=== PATIENT | male | born 1935 | race Caucasian/White ===

== ENCOUNTER 2022-11-17 05:45 | Inpatient (IN) | payer MEDICARE, OTHER ==
[2022-11-13 10:23] LABS: Absolute Lymphocytes (CBC) 1.3 K/uL (0.7-4.9); Hematocrit 39.6 % (39.6-49.0); Lymphocytes % 14.8 % (15.3-44.8); MCV 96.9 fL (80-100); MPV 7.9 fL (7.6-11.3); RBC Red Blood Cell Count 4.08 M/uL (4.33-5.43)
[2022-11-13 10:30] LABS: Protime INR 0.97
[2022-11-13 10:35] LABS: Specific Gravity 1.017 (1.005-1.030); Urine Bilirubin NEGATIVE (Negative); Urine Blood Negative (Negative); Urine Clarity Clear (Clear); Urine Color Light-Yellow (Yellow); Urine Glucose NEGATIVE (Negative); Urine Protein NEGATIVE (Negative); Urine Urobilinogen Normal (Normal); Urine pH 5.5 (5.0-7.0)
--- NOTE | 2022-11-13 10:39 | RAD REPORT ---
EXAM DESCRIPTION: RAD - Chest Pa And Lat (2 Views) - 11/13/2022 10:21 am CLINICAL HISTORY: pre op for surgery COMPARISON: No comparisons FINDINGS: Lines: None. Lungs: No evidence of edema or pneumonia. Small nodular opacity in the right mid lung measuring 7 mil limeters. Pleural: No significant pleural effusions or pneumothorax. Cardiac: The heart size is within normal limits. Mediastinum: Within normal limits. Bones: No acute fractures. Other: None IMPRESSION: No acute cardiopulmonary disease. Small nodular opacity in the right mid lung. A [facility] follow-up chest radiograph could be obtained to ensure stability and/or resolution.
[2022-11-13 10:40] LABS: Albumin 3.3 g/dL (3.4-5.0); Bilirubin Total 0.4 mg/dL (0.2-1.0); Potassium 4.2 mmol/L (3.5-5.1); Protein, Total 6.8 g/dL (6.4-8.2)
--- NOTE | 2022-11-14 17:40 | EKG ---
Test Date: 2022-11-13 Test Time: 09:51:32 Degreaser: UZMA MEASUREMENT RESULTS: Intervals: Rate: 57 NE: QRSD: 168 QT: 480 QTc: 467 [place]: P: NE: QRS: -78 T: -4 INTERPRETIVE STATEMENTS: Wide QRS rhythm Left axis deviation Right bundle branch block Abnormal ECG No previous ECG available for comparison Electronically Signed On 11-14-22 17:39:20 HL7 DEVELOPER by Paulino Aguilar
[2022-11-17] MEDS ORDERED: GABAPENTIN 100 MG CAP ONE (05:58)
[2022-11-17] MEDS ORDERED: CELECOXIB 100 MG CAPSULE ONE (05:58)
[2022-11-17] MEDS ORDERED: Oxycodone HCl/Acetaminophen 1 TAB TAB ONE (05:58)
[2022-11-17] MEDS ORDERED: ACETAMINOPHEN 500 MG TAB ONE (05:59)
[2022-11-17] MEDS ORDERED: Ringers Lactate 1,000 ML IV ONE ×2 (05:59→08:48)
[2022-11-17] MEDS ORDERED: FENTANYL CITR 100 MCG/2 ML ONE (06:22)
[2022-11-17] MEDS ORDERED: EPINEPHRINE/PF 1 MG/ML AMP ONE (06:22)
[2022-11-17] MEDS ORDERED: dexAMETHasone 10 MG/ML VIAL ONE (06:22)
[2022-11-17] MEDS ORDERED: HYDROMORPHONE HCL 1 MG/ML INJ ONE (06:23)
[2022-11-17] MEDS ORDERED: propofoL 200 MG/20 ML VIAL IV ONE ×6 (06:23→09:13)
[2022-11-17] MEDS ORDERED: BUPIVACAINE 0.25% PF 30 ML VIAL ONE (06:23)
[2022-11-17] MEDS ORDERED: KETOROLAC 30 MG/ML INJ ONE (07:04)
[2022-11-17] MEDS ORDERED: KETAMINE HCL 500 MG/5 ML VIAL ONE (07:04)
[2022-11-17] MEDS ORDERED: LIDOCAINE 2% MPF 5 ML VIAL ONE (07:04)
[2022-11-17] MEDS ORDERED: ONDANSETRON 4 MG/2 ML VIAL ONE (07:04)
[2022-11-17] MEDS: CEFAZOLIN SODIUM 2 GM/VIAL ONE ×3 (07:05→07:19)
[2022-11-17] MEDS: TRANEXAMIC ACID 1,000 MG/10 ML VIAL IV ONE ×2 (07:05→07:11)
[2022-11-17] MEDS ORDERED: NS 0.9% VIAL 20 ML ONE (07:25)
[2022-11-17] MEDS ORDERED: ONDANSETRON 4 MG/2 ML VIAL IV PRN (09:56)
[2022-11-17] MEDS ORDERED: DOCUSATE NA 100 MG CAP PO PRN (09:56)
--- NOTE | 2022-11-17 09:56 | P.BOP ---
Preoperative diagnosis: right knee DJD Postoperative diagnosis: same Primary procedure: right TKA Estimated blood loss: 50ccs Anesthesia: General Complications: None Transferred to: Recovery Room Condition: Good
[2022-11-17 10:33] LABS: SARS-CoV-2 Antigen Rapid Res Negative (Negative)
--- OUTSIDE RECORDS SUMMARY | 2022-11-17 10:54 | XMS REPORT | Continuity of Care Document ---
:1935 Author Organization [facility] t Address [address] [place] [address] [address] [place] [address] Care Team Providers Name Role Phone Randell Arshad MD Primary Care Physician [id number] Attending Clinician Unavailable LAYA LOWRY Attending Clinician Unavailable [id number] Admitting Clinician Unavailable Payers Payer Name Policy Type Policy Number Effective Date Expiration Date S ource [facility] [id number] Problems This patient has no known problems. Allergies, Adverse Reactions, Alerts This patient has no known allergies or adverse reactions. Social History Social Habit Start Date Stop Date Quantity Comments Source Sex Assigned At [address] [facility] 00:00:00 00:00:00 Smoking Status Start Date Stop Date Source Tobacco smoking consumption unknown [facility] Medications This patient has no known medications. Procedures This patient has no known procedures. Plan of Care Planned Activity Planned Date Details Comments Source Future Scheduled 2022-10-21 INFLUENZA VACCINE Method [facility] Test 07:14:13 [code = INFLUENZA VACCINE] Future Scheduled 2022-10-21 COVID-19 VACCINE (#1) [facility] Test 07:14:13 [code = COVID-19 VACCINE (#1)] Future Scheduled 2022-10-21 SHINGLES VACCINES (1 Met [facility] Test 07:14:13 of 2) [code = SHINGLES VACCINES (1 of 2)] Future Scheduled 2022-10-21 65+ [facility] VACCINE (1 - PCV) [code = 65+ PNEUMOCOCCAL VACCINE (1 - PCV)] Encounters Start End Encounter Admission Attending Care Care Encounter Source Date/Time Date/Time Type Type Clinicians Facility Department ID 2022-11-13 Outpatient 3 [id number] [facility] ORJ [id number] [facility] 08:50:42 [facility] 2022-11-11 Outpatient 3 [id number] [facility] REF [id number] [facility] 12:08:19 [id number] [place] [facility] 2019-11-28 2019-11-28 Outpatient LAYA LOWRY [facility] [id number] [facility] 00:00:00 00:00:[address] 2019-11-28 2019-11-28 Outpatient LAYA LOWRY [facility] [id number] [facility] 00:00:00 00:00:[address] Results This patient has no known results.
[2022-11-17] MEDS ORDERED: ACETAMINOPHEN 325 MG TABLET PO PRN (12:28)
[2022-11-17] MEDS ORDERED: HYDRALAZINE HCL 20 MG/ML VIAL IV PRN (12:28)
--- NOTE | 2022-11-17 12:48 | P.CNS ---
Reason for Consult: Medical management. Requesting Physician: Miky Renae Chief Complaint: Right knee pain. History of Present Illness: Patient is an 87-year-old male with a past medical history significant for hypothyroidism, hypertension, atrial fibrillation, prostate cancer, osteoarthritis who presents for scheduled procedure--right knee replacement-- with his orthopedic surgeon. Patient reported that he has been having pain in the right knee for the past couple of years. Patient has attempted conservative management, pain medications, steroid injections with no resolution of pain. Patient rated pain before procedure as 10/10 in severity and described pain as aching in quality. Patient agreed with his surgeon to perform a right knee replacement. Patient tolerated procedure. Patient currently rates right knee pain as 3/10 in severity. Patient denies any other signs and symptoms. Symptoms are aggravated or relieved by nothing. Patient currently resting bed with right knee on the a CPM machine. Allergies No Known Allergies Allergy (Verified 11/13/22 09:14) Home Medications: Aspirin [Aspirin EC] 81 mg PO DAILY 09/13/15 Digoxin [Lanoxin] 0.25 mg PO DAILY 09/13/15 Flecainide [Tambocor] 200 mg PO BID 09/13/15 Levothyroxine [Synthroid] 88 mcg PO [id number] 09/13/15 Losartan/Hydrochlorothiazide [Losartan-Hctz 100-12.5 mg Tab] 1 each PO DAILY 09/13/15 Metoprolol Tartrate [Lopressor] 50 mg PO BID 09/13/15 Multivit-Min/FA/Lycopen/Lutein [Centrum Silver Tablet] 1 each PO DAILY 09/13/15 Naproxen Sodium [Aleve] 220 mg PO PRN PRN 11/13/22 - Past Medical/Surgical History Diabetic: No -: HTN -: OA -: A-Fib -: Prostate CA -: Thyroid Disease -: irregular heart beat -: high blood pressure -: prostrate cancer radiation 2009 -: hernia 20 yrs old -: kidney stone 40 yrs ago -: Spinal Sx - Family History Mother Medical History: Heart disease Family History: Reviewed- Non-Contributory - Social History Smoking Status: Unknown if ever smoked Alcohol use: No CD- Drugs: No Caffeine use: Yes Place of Residence: Home Review of Systems General: Unremarkable Eyes: Unremarkable ENT: Unremarkable Respiratory: Unremarkable Cardiovascular: Unremarkable Gastrointestinal: Unremarkable Genitourinary: Unremarkable Musculoskeletal: Other (right knee pain) Integumentary: Other (right knee incision ) Neurological: Unremarkable Lymphatics: Unremarkable Physical Examination Temp Pulse Resp BP Pulse Ox 97.2 F 62 16 171/81 H 95 11/17/22 12:00 11/17/22 12:00 11/17/22 12:00 11/17/22 12:00 11/17/22 12:00 General: Alert, In no apparent distress, Oriented x3, Cooperative HEENT: Atraumatic, Normocephalic, PERRLA, Mucous membr. moist/pink Neck: Supple, 2+ carotid pulse no bruit, JVD not distended Respiratory: Clear to auscultation bilaterally, Normal air movement Cardiovascular: No edema, No murmurs, Irregular heart rate/rhythm Capillary refill: <2 Seconds Gastrointestinal: Normal bowel sounds, Soft and benign Musculoskeletal: No clubbing, No contractures Integumentary: No rashes, No breakdown, No significant lesion Neurological: Normal speech, Normal tone, Normal affect Lymphatics: No axilla or inguinal lymphadenopathy Conclusions/Impression: --Right knee osteoarthritis. Status post right knee arthroplasty. Patient on a CPM machine at time of assessment. Physical therapy eval and treat. Orthopedic surgeon will. Continue supportive care. --Acute pain\osteoarthritis. We will manage pain with current pain medication regimen. --Atrial fibrillation. Continue home medications. Telemetry to monitor for any malignant arrhythmia. --Hypothyroidism. Continue Synthroid. --Hypertension. Poorly controlled. Continue home medications and hydralazine as needed. --History of prostate cancer. Status unknown. Continue supportive care. -- Anemia of chronic disease. H&H stable. We will continue to monitor hemoglobin and transfuse if less than 7.0. --CKD 2. Stable. We will continue to monitor renal functions. --DVT prophylaxis with SCDs. Continue chemical prophylaxis in a.m. Physician Review: Patient Assessed, Agree with Above Assessment and Plan Critical Care: No
[2022-11-17 16:23] LABS: Specific Gravity 1.021 (1.005-1.030); Urine Bilirubin NEGATIVE (Negative); Urine Blood Negative (Negative); Urine Clarity Clear (Clear); Urine Color Light-Yellow (Yellow); Urine Glucose NEGATIVE (Negative); Urine Protein NEGATIVE (Negative); Urine Urobilinogen Normal (Normal)
[2022-11-17] MEDS: CEFAZOLIN 1 GM in NA CHLORIDE 0.9% 50 ML IVPB SCH (16:51)
--- NOTE | 2022-11-17 18:34 | OP ---
Date of Procedure: 11/17/2022 Surgeon: Miky Renae MD Preoperative Diagnosis: Severe right knee arthritis. Postoperative Diagnosis: Severe right knee arthritis. Procedure: Right total knee arthroplasty using the [employer] Vanguard system. Estimated Blood Loss: 50 cc. Complications: There were no complications. Indications: Mr. Akers is an 87-year-old male who unfortunately is severely bothered by his right knee. This persists despite injections and further conservative care. He is 87 years old and we di d discuss quite a bit that he is quite older and perhaps further conservative care would definitely b e preferable; however, it is unfortunately not helpful and the patient is having severe difficulty. Therefore the risks, benefits, and alternatives to procedure are discussed and he agrees to proceed. It should be noted that his knee does not come to full extension, lacking a few degrees from full ex tension and also has a fairly significant valgus alignment. Description Of Procedure: The patient has a block placed, then was taken to the operating room, and placed in supine position. General anesthesia is obtained by Anesthesia staff. Following this, well -padded tourniquet was placed on superior right thigh. Right lower extremity was then prepped and dr aped in usual sterile fashion for procedure. It does lack a few degrees of full extension and has qu ite a bit of valgus. After this, the right lower extremity was then prepped and draped in usual ster ile fashion and the knee was then elevated, exsanguinated, and bent and the tourniquet was raised. A fter this, a standard anterior approach was taken down carefully through skin and soft tissues. Meti culous hemostasis being maintained using Bovie electrocautery. This leads down to the patella. The superomedial pole of patella was then marked and a standard medial parapatellar arthrotomy was then p erformed with liberation of approximately 60 cc of rather normal-appearing synovial fluid. The knee was examined. He does have wear throughout all 3 compartments. However, there was less wear on the lateral side than I had anticipated based on preoperative planning and this appeared to be more of a significantly dished out lateral side rather than an eroded lateral side demonstrating that the amoun t of bone loss laterally was not as much as probably anticipated, however, definitely did involve art hritic changes there. After this, an intramedullary alignment guide was placed and a distal cut was made. This was cutting not much of the lateral condyle, but more of the medial condyle as this was l ined up with the femoral shaft. After this, it was then measured to a size 65. The remainder of the femoral cuts were then made. Following this, attention was then turned to the tibia. It should be noted that the lateral has a very large dish and the tibial cut is made quite a bit more shallow on t he lateral side. It was then sized and trialed. The knee is in a little bit of valgus, but it appea rs to be very well balanced perhaps slightly looser medially, but fairly tight laterally. At this po int, decision was made to continue with this alignment as cutting more on the lateral side would prob ably necessitate a series of releases as the soft tissue was already quite tight on that side. Even though he is in some degree of valgus, it was felt that it was probably better to proceed on rather t burns establish releases on the lateral side as cutting more of the lateral side would lead to increase d valgus, but it was definitely considered. Following this, the patella was then calipered and cut a nd a trial patellar button was placed. It was then brought through a full range of motion and the pa tella appears to glide with 1 finger pressure. After this, the box was then cut as well as the tibia being punched, the bone plug was placed and all the components with the exception of the tibial poly ethylene were then cemented into place. Unsupported cement was removed. After the cement had harden ed, the knee was brought through range of motion and the patella still holds over with 1 finger press ure. It is a little bit loose medially, but again did not want to perform lateral releases and place a thicker polyethylene as I believe this would have led to more of a valgus alignment that is alread y present. Care was taken to not internally rotate either the femur or the tibia during the procedur e as well. Decision was made to move forward with this as the final polyethylene and it was then dereje corby with a locking bar. The wound was copiously irrigated. Any unsupported cement was noted to be r emoved. The knee was then brought through range of motion. Patella continues to glide well. The ex tensor mechanism was then repaired in a watertight fashion. This was followed by closure of the skin using Vicryl sutures, followed by andres. The patient was then placed in a very well-padded sterile dressing and taken to recovery ro om. LAM/ZEUS Voice ID: [id number] Report ID: [id number]
[2022-11-17] MEDS: METOPROLOL TAR 50 MG TAB PO SCH ×2 (20:23→20:30)
[2022-11-17] MEDS: FLECAINIDE 100 MG TAB PO SCH (20:24)
[2022-11-17] MEDS: HYDROCODONE/APAP 7.5/325 MG TAB PO PRN (20:25)
[2022-11-18] MEDS: CEFAZOLIN 1 GM in NA CHLORIDE 0.9% 50 ML IVPB SCH ×2 (01:21→09:30)
[2022-11-18 05:06] LABS: Absolute Lymphocytes (CBC) 1.1 K/uL (0.7-4.9); Hematocrit 34.8 % (39.6-49.0); Lymphocytes % 8.2 % (15.3-44.8); MCV 96.5 fL (80-100); MPV 8.5 fL (7.6-11.3)
[2022-11-18 05:17] LABS: Potassium 3.9 mmol/L (3.5-5.1)
[2022-11-18] MEDS ORDERED: POTASSIUM 25 MEQ EFFERV TAB PO ONE (05:27)
[2022-11-18] MEDS: ENOXAPARIN 30 MG/0.3 ML SQ SCH ×2 (05:35→17:11)
[2022-11-18] MEDS: LEVOTHYROXINE SOD 0.088 MG TAB PO SCH (05:35)
[2022-11-18] MEDS: FLECAINIDE 100 MG TAB PO SCH ×2 (09:30→20:00)
[2022-11-18] MEDS: ASPIRIN EC 81 MG TAB PO SCH (09:30)
[2022-11-18] MEDS: LOSARTAN POTASSIUM 50 MG TABLET PO SCH (09:30)
[2022-11-18] MEDS: MULTIVIT W/ MINERAL TAB PO SCH (09:30)
[2022-11-18] MEDS: DIGOXIN 0.25 MG TABLET PO SCH (09:30)
[2022-11-18] MEDS: METOPROLOL TAR 50 MG TAB PO SCH ×3 (09:31→20:07)
[2022-11-18] MEDS: HYDROCODONE/APAP 7.5/325 MG TAB PO PRN ×3 (09:31→20:00)
[2022-11-18] MEDS: hydroCHLOROthiazide 12.5 MG CAP PO SCH (09:31)
--- NOTE | 2022-11-18 13:56 | P.PN ---
Subjective Date of Service: 11/18/22 Chief Complaint: Right knee pain. Patient has no new complaint. He was able to ambulate about 25 feet yesterday. Physical Examination - Vital Signs Temperature: 98.2 F Blood Pressure: 135/58 Pulse: 73 Respirations: 18 Pulse Ox (%): 96 - Physical Exam General: Alert, In no apparent distress, Oriented x3 HEENT: Mucous membr. moist/pink Neck: JVD not distended Respiratory: Clear to auscultation bilaterally, Normal air movement Cardiovascular: No edema, Regular rate/rhythm, Normal S1 S2 Gastrointestinal: Soft and benign, Non-distended, No tenderness Musculoskeletal: No swelling, Other (Right knee in Handy wrap) Integumentary: No rashes, No cyanosis Neurological: Normal strength at 5/5 x4 extr - Studies Laboratory Data (last 24 hrs) 11/18/22 : Potassium Cancelled 11/18/22 03:52: Sodium 140, Potassium 3.9, BUN 26 H, Creatinine 0.72, Glucose 130 H 11/18/22 03:52: WBC 13.20 H, Hgb 11.4 L, Hct 34.8 L, Plt Count 301 Assessment And Plan - Plan Diagnosis Right knee osteoarthritis Chronic atrial fibrillation Hypothyroidism Hypertension History of prostate cancer Acute blood loss anemia. Plan: Noted drop in hemoglobin which could be acute blood loss secondary to surgery. Continue to monitor hemoglobin and transfuse as needed for hemoglobin less than 7. Resume home antihypertensives. Continue flecainide, digoxin and metoprolol for A. fib. Patient anticoagulated with Lovenox every 12hrs. Continue home antihypertensives. Continue home dose Synthroid. Supportive measures with pain management as needed. Continue PT and OT. [facility] Physician Review: Patient Assessed, Agree with Above Assessment and Plan
[2022-11-19] MEDS: HYDROCODONE/APAP 7.5/325 MG TAB PO PRN ×5 (03:43→21:49)
[2022-11-19 03:51] LABS: Hematocrit 30.3 % (39.6-49.0)
[2022-11-19 04:05] LABS: Phosphorus 3.2 mg/dL (2.5-4.9)
[2022-11-19] MEDS: ENOXAPARIN 30 MG/0.3 ML SQ SCH ×2 (05:52→17:09)
[2022-11-19] MEDS: LEVOTHYROXINE SOD 0.088 MG TAB PO SCH (05:52)
[2022-11-19] MEDS: ASPIRIN EC 81 MG TAB PO SCH (08:43)
[2022-11-19] MEDS: hydroCHLOROthiazide 12.5 MG CAP PO SCH (08:44)
[2022-11-19] MEDS: FLECAINIDE 100 MG TAB PO SCH ×2 (08:44→20:49)
[2022-11-19] MEDS: MULTIVIT W/ MINERAL TAB PO SCH (08:44)
[2022-11-19] MEDS: METOPROLOL TAR 50 MG TAB PO SCH ×2 (08:44→20:50)
[2022-11-19] MEDS: LOSARTAN POTASSIUM 50 MG TABLET PO SCH (08:44)
[2022-11-19] MEDS: DIGOXIN 0.25 MG TABLET PO SCH (08:45)
[2022-11-19] MEDS ORDERED: NA CHLORIDE 0.9% 1,000 ML IV ONE (10:41)
--- NOTE | 2022-11-19 17:15 | P.PN ---
Subjective Date of Service: 11/19/22 Chief Complaint: Right knee pain. Patient has no new complaint. Patient is ambulating short distances. He had a near syncopal episode during PT today and noted to be orthostatic. Physical Examination - Vital Signs Temperature: 97.5 F Blood Pressure: 121/62 Pulse: 56 Respirations: 16 Pulse Ox (%): 97 - Physical Exam General: Alert, In no apparent distress, Oriented x3 HEENT: Mucous membr. moist/pink Neck: JVD not distended Respiratory: Clear to auscultation bilaterally, Normal air movement Cardiovascular: No edema, Regular rate/rhythm, Normal S1 S2 Gastrointestinal: Normal bowel sounds, Soft and benign, Non-distended, No tenderness Musculoskeletal: Other (Right knee in Handy wrap) Integumentary: No cyanosis Neurological: Normal strength at 5/5 x4 extr - Studies Laboratory Data (last 24 hrs) 11/19/22 03:11: Sodium 140, Potassium 4.0, BUN 29 H, Creatinine 0.70, Glucose 109 H, Phosphorus 3.2, Magnesium 2.0 11/19/22 03:11: Hgb 10.0 L D, Hct 30.3 L Assessment And Plan - Plan Diagnosis Orthostatic hypotension Right knee osteoarthritis Chronic atrial fibrillation Hypothyroidism Hypertension History of prostate cancer Acute blood loss anemia. Plan: Patient noted to be on multiple BP meds. Losartan and hydrochlorothiazide on hold due to orthostatic hypotension. He was given 1 L normal saline bolus. Orthostatic precautions. Continue to monitor orthostatic vitals. Noted drop in hemoglobin which could be acute blood loss secondary to surgery. Hemoglobin dropped to 10. Continue to monitor hemoglobin and transfuse as needed for hemoglobin less than 7. Continue flecainide, digoxin and metoprolol for A. fib. Patient anticoagulated with Lovenox every 12hrs. Continue home dose Synthroid. Supportive measures with pain management as needed. Continue PT and OT. [facility]. Awaiting insurance authorization.
[2022-11-20 03:50] LABS: Hematocrit 31.2 % (39.6-49.0)
[2022-11-20] MEDS: HYDROCODONE/APAP 7.5/325 MG TAB PO PRN ×4 (05:12→20:04)
[2022-11-20] MEDS: ENOXAPARIN 30 MG/0.3 ML SQ SCH ×2 (05:12→18:04)
[2022-11-20] MEDS: LEVOTHYROXINE SOD 0.088 MG TAB PO SCH (05:12)
[2022-11-20] MEDS: METOPROLOL TAR 50 MG TAB PO SCH ×2 (08:57→20:23)
[2022-11-20] MEDS: FLECAINIDE 100 MG TAB PO SCH ×2 (08:57→20:06)
[2022-11-20] MEDS: DIGOXIN 0.25 MG TABLET PO SCH (08:57)
[2022-11-20] MEDS: MULTIVIT W/ MINERAL TAB PO SCH (08:57)
[2022-11-20] MEDS: ASPIRIN EC 81 MG TAB PO SCH (08:57)
--- NOTE | 2022-11-20 19:05 | P.PN ---
Subjective Date of Service: 11/20/22 Chief Complaint: Right knee pain. Patient has no new complaint. He is still orthostatic. Orthostasis noted during PT session. Physical Examination - Vital Signs Temperature: 98.6 F Blood Pressure: 125/60 Pulse: 56 Respirations: 16 Pulse Ox (%): 94 - Physical Exam General: Alert, In no apparent distress, Oriented x3, Obese HEENT: Mucous membr. moist/pink Neck: JVD not distended Respiratory: Clear to auscultation bilaterally, Normal air movement Cardiovascular: No edema, Regular rate/rhythm, Normal S1 S2 Gastrointestinal: Soft and benign, Non-distended Integumentary: No rashes Neurological: Normal strength at 5/5 x4 extr, Cranial nerves 3-12 intact - Studies Laboratory Data (last 24 hrs) 11/20/22 03:31: Hgb 10.4 L, Hct 31.2 L Assessment And Plan - Plan Diagnosis Orthostatic hypotension Right knee osteoarthritis Chronic atrial fibrillation Hypothyroidism Hypertension History of prostate cancer Acute blood loss anemia. Plan: Losartan and hydrochlorothiazide on hold due to orthostatic hypotension. Status post 1 L normal saline bolus. Orthostatic precautions. Continue to monitor orthostatic vitals. Noted drop in hemoglobin which could be acute blood loss secondary to surgery. Hemoglobin dropped to 10 and now stable Continue to monitor hemoglobin and transfuse as needed for hemoglobin less than 7. Continue flecainide, digoxin and metoprolol for A. fib. Patient anticoagulated with Lovenox every 12hrs. Continue home dose Synthroid. Supportive measures with pain management as needed. Continue PT and OT. [facility]. Awaiting insurance authorization.
[2022-11-21] MEDS: HYDROCODONE/APAP 7.5/325 MG TAB PO PRN ×5 (00:09→21:17)
[2022-11-21 04:20] LABS: Absolute Lymphocytes (CBC) 2.7 K/uL (0.7-4.9); Hematocrit 32.9 % (39.6-49.0); Lymphocytes % 28.4 % (15.3-44.8); MCV 96.8 fL (80-100); MPV 8.9 fL (7.6-11.3)
[2022-11-21 04:30] LABS: Potassium 4.1 mmol/L (3.5-5.1)
[2022-11-21] MEDS: LEVOTHYROXINE SOD 0.088 MG TAB PO SCH (05:17)
[2022-11-21] MEDS: ENOXAPARIN 30 MG/0.3 ML SQ SCH ×2 (05:17→17:07)
[2022-11-21] MEDS: DIGOXIN 0.25 MG TABLET PO SCH (08:56)
[2022-11-21] MEDS: FLECAINIDE 100 MG TAB PO SCH ×2 (08:56→21:17)
[2022-11-21] MEDS: METOPROLOL TAR 50 MG TAB PO SCH ×2 (08:56→21:25)
[2022-11-21] MEDS: MULTIVIT W/ MINERAL TAB PO SCH (08:56)
[2022-11-21] MEDS: ASPIRIN EC 81 MG TAB PO SCH (08:56)
--- NOTE | 2022-11-21 13:46 | P.PN ---
Subjective Date of Service: 11/21/22 Chief Complaint: Right knee pain. Patient is complaining of constipation. No BM for 4 days. Physical Examination - Vital Signs Temperature: 97 F Blood Pressure: 103/51 Pulse: 55 Respirations: 18 Pulse Ox (%): 99 - Studies Laboratory Data (last 24 hrs) 11/21/22 03:12: Sodium 139, Potassium 4.1, BUN 21 H, Creatinine 0.63 L, Glucose 102 11/21/22 03:12: WBC 9.40, Hgb 11.0 L, Hct 32.9 L, Plt Count 286 Assessment And Plan - Plan Physical Exam General: Alert, In no apparent distress, Oriented x3. Neck: JVD not distended Respiratory: Clear to auscultation bilaterally, Normal air movement Cardiovascular: No edema, Regular rate/rhythm, Normal S1 S2 Gastrointestinal: Soft and benign, Non-distended Integumentary: No rashes Neurological: No focal motor deficit. Diagnosis Orthostatic hypotension Right knee osteoarthritis Chronic atrial fibrillation Hypothyroidism Hypertension History of prostate cancer Acute blood loss anemia. Plan: Losartan and hydrochlorothiazide on hold due to orthostatic hypotension. Status post 1 L normal saline bolus. Orthostatic precautions. Continue to monitor orthostatic vitals. Noted drop in hemoglobin which could be acute blood loss secondary to surgery. Hemoglobin dropped to 10 and now stable Continue to monitor hemoglobin and transfuse as needed for hemoglobin less than 7. Continue flecainide, digoxin and metoprolol for A. fib. Patient anticoagulated with Lovenox every 12hrs per Ortho. Continue home dose Synthroid. Pain management as needed Continue PT and OT. Patient is asking for MiraLAX. Start MiraLAX for constipation. [facility]. Awaiting insurance authorization.
[2022-11-22] MEDS: HYDROCODONE/APAP 7.5/325 MG TAB PO PRN ×6 (01:26→22:33)
[2022-11-22 04:01] LABS: Magnesium 2.4 mg/dL (1.6-2.4); Phosphorus 3.1 mg/dL (2.5-4.9); Potassium 4.4 mmol/L (3.5-5.1)
[2022-11-22] MEDS: ENOXAPARIN 30 MG/0.3 ML SQ SCH ×2 (06:08→18:01)
[2022-11-22] MEDS: LEVOTHYROXINE SOD 0.088 MG TAB PO SCH (06:08)
[2022-11-22] MEDS: POLYETHYL GLY 3350 17 GM/DOSE PO SCH (06:17)
[2022-11-22] MEDS: METOPROLOL TAR 50 MG TAB PO SCH ×2 (09:00→21:00)
[2022-11-22] MEDS: MULTIVIT W/ MINERAL TAB PO SCH (09:55)
[2022-11-22] MEDS: ASPIRIN EC 81 MG TAB PO SCH (09:55)
[2022-11-22] MEDS: FLECAINIDE 100 MG TAB PO SCH ×2 (09:55→22:33)
[2022-11-22] MEDS: DIGOXIN 0.25 MG TABLET PO SCH (09:55)
--- NOTE | 2022-11-22 13:20 | P.PN ---
Subjective Date of Service: 11/22/22 Chief Complaint: Right knee pain. Patient noted to be bradycardic today. He reports no bowel movement yet. Physical Examination - Vital Signs Temperature: 97.2 F Blood Pressure: 125/59 Pulse: 55 Respirations: 16 Pulse Ox (%): 96 - Studies Laboratory Data (last 24 hrs) 11/22/22 03:19: Sodium 139, Potassium 4.4, BUN 21 H, Creatinine 0.69 L, Glucose 118 H, Phosphorus 3.1, Magnesium 2.4 Assessment And Plan - Plan Physical Exam General: Alert, In no apparent distress, Oriented x3. Neck: JVD not distended Respiratory: Clear to auscultation bilaterally, Normal air movement Cardiovascular: No edema, Regular rate/rhythm, Normal S1 S2 Gastrointestinal: Soft and benign, Non-distended Integumentary: No rashes Neurological: No focal motor deficit. Diagnosis Orthostatic hypotension Right knee osteoarthritis Chronic atrial fibrillation Hypothyroidism Hypertension History of prostate cancer Acute blood loss anemia. Plan: Losartan and hydrochlorothiazide on hold due to orthostatic hypotension. Status post 1 L normal saline bolus. Metoprolol held this morning due to bradycardia. Orthostatic precautions. Continue to monitor orthostatic vitals. Continue flecainide and digoxin for A. fib Noted drop in hemoglobin which could be acute blood loss secondary to surgery. Hemoglobin dropped to 10 and now stable Continue to monitor hemoglobin and transfuse as needed for hemoglobin less than 7. Patient anticoagulated with Lovenox every 12hrs per Ortho. Continue home dose Synthroid. Pain management as needed Continue PT and OT. Continue MiraLAX for constipation. Patient denies any abdominal discomfort. [facility]. Awaiting insurance authorization.
[2022-11-23 02:19] VITALS: BMI 26.5
[2022-11-23] MEDS: HYDROCODONE/APAP 7.5/325 MG TAB PO PRN ×6 (02:45→22:53)
[2022-11-23 04:49] LABS: Magnesium 2.3 mg/dL (1.6-2.4); Phosphorus 2.9 mg/dL (2.5-4.9); Potassium 4.7 mmol/L (3.5-5.1)
[2022-11-23] MEDS: ENOXAPARIN 30 MG/0.3 ML SQ SCH ×2 (06:37→17:19)
[2022-11-23] MEDS: LEVOTHYROXINE SOD 0.088 MG TAB PO SCH (06:37)
[2022-11-23] MEDS: POLYETHYL GLY 3350 17 GM/DOSE PO SCH (08:17)
[2022-11-23] MEDS: ASPIRIN EC 81 MG TAB PO SCH (08:19)
[2022-11-23] MEDS: FLECAINIDE 100 MG TAB PO SCH ×2 (08:19→20:28)
[2022-11-23] MEDS: MULTIVIT W/ MINERAL TAB PO SCH (08:19)
[2022-11-23] MEDS: DIGOXIN 0.25 MG TABLET PO SCH (08:19)
[2022-11-23] MEDS: METOPROLOL TAR 50 MG TAB PO SCH ×2 (08:20→21:00)
[2022-11-23] MEDS: BISACODYL 10 MG RECTAL SUPP PR ONE ×2 (14:20→15:34)
--- NOTE | 2022-11-23 17:37 | P.PN ---
Subjective Date of Service: 11/23/22 Chief Complaint: KNEE SURGERY Subjective: Improving MR. 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 JOHNSTON. SOMEHOW HE NEVER CALLED ME BACK TO TAKE CARE OF HIM AND HAD HOSPITAL GUYS WORKING ON HIM. TODAY AFTER A WEEK THEY FIGURED OUT THAT I AM HIS PRIMARY MD AND SO THEY CALLED ME TO TAKE OVER. HE IS HAVING ORTHOSTASIS AND CONSTIPATION. Review of Systems 10-point ROS is otherwise unremarkable General: Weakness Physical Examination - Vital Signs Temperature: 98.2 F Blood Pressure: 150/63 Pulse: 70 Respirations: 17 Pulse Ox (%): 97 - Physical Exam General: Alert, Mild distress HEENT: Atraumatic, PERRLA, EOMI Neck: Supple, JVD not distended Respiratory: Clear to auscultation bilaterally, Normal air movement Cardiovascular: Regular rate/rhythm, Normal S1 S2 Gastrointestinal: Normal bowel sounds, No tenderness Musculoskeletal: No tenderness Integumentary: No rashes Neurological: Normal speech, Normal tone, Normal affect Lymphatics: No axilla or inguinal lymphadenopathy - Studies Laboratory Data (last 24 hrs) 11/23/22 03:58: Sodium 138, Potassium 4.7, BUN 23 H, Creatinine 0.72, Glucose 114 H, Phosphorus 2.9, Magnesium 2.3 Medications List Reviewed: Yes Assessment And Plan - Current Problems (Diagnosis) (1) Orthostatic hypotension Current Visit: Yes Status: Acute Plan: I HAVE SEEN MANY OLDER MEN HAVING THIS ISSUE WITH LOW TESTOSTERONE. HE HAD PROSTATE CANCER. I WILL DISCUSS WITH HIM. HIS T LEVEL IS 41 THAT IS VERY LOW. (2) S/P knee surgery Current Visit: Yes Status: Acute Plan: WAITING FOR NH. (3) Constipated Current Visit: Yes Status: Acute Plan: DULCOLAX SUP POST SURGICAL NARCOTIC RELATED. Physician Review: Patient Assessed, Agree with Above Assessment and Plan
[2022-11-23] MEDS: DOCUSATE NA 100 MG CAP PO SCH (20:28)
[2022-11-24] MEDS: HYDROCODONE/APAP 7.5/325 MG TAB PO PRN ×5 (03:20→20:18)
[2022-11-24 04:05] LABS: Magnesium 2.4 mg/dL (1.6-2.4); Phosphorus 2.8 mg/dL (2.5-4.9); Potassium 4.4 mmol/L (3.5-5.1)
[2022-11-24] MEDS: ENOXAPARIN 30 MG/0.3 ML SQ SCH ×2 (07:29→17:30)
[2022-11-24] MEDS: LEVOTHYROXINE SOD 0.088 MG TAB PO SCH ×2 (07:29→07:30)
[2022-11-24] MEDS: METOPROLOL TAR 50 MG TAB PO SCH ×2 (08:39→20:20)
[2022-11-24] MEDS: DIGOXIN 0.25 MG TABLET PO SCH (08:40)
[2022-11-24] MEDS: POLYETHYL GLY 3350 17 GM/DOSE PO SCH (08:41)
[2022-11-24] MEDS: ASPIRIN EC 81 MG TAB PO SCH (08:41)
[2022-11-24] MEDS: FLECAINIDE 100 MG TAB PO SCH ×2 (08:41→20:18)
[2022-11-24] MEDS: MULTIVIT W/ MINERAL TAB PO SCH (08:41)
[2022-11-24] MEDS: DOCUSATE NA 100 MG CAP PO SCH (20:19)
--- NOTE | 2022-11-24 21:57 | P.PN ---
Subjective Date of Service: 11/24/22 Chief Complaint: KNEE SURGERY Subjective: Improving MR. 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 JOHNSTON. SOMEHOW HE NEVER CALLED ME BACK TO TAKE CARE OF HIM AND HAD HOSPITAL GUYS WORKING ON HIM. TODAY AFTER A WEEK THEY FIGURED OUT THAT I AM HIS PRIMARY MD AND SO THEY CALLED ME TO TAKE OVER. HE IS HAVING ORTHOSTASIS AND CONSTIPATION. INSURANCE IS DELAYING TRANSFER OF THIS PATIENT TO REHAB. HE IS STABLE. Physical Examination - Vital Signs Temperature: 98.3 F Blood Pressure: 164/81 Pulse: 77 Respirations: 16 Pulse Ox (%): 96 - Physical Exam General: Oriented x3, Mild distress HEENT: Atraumatic, PERRLA, EOMI Neck: Supple, JVD not distended Respiratory: Clear to auscultation bilaterally, Normal air movement Cardiovascular: Regular rate/rhythm, Normal S1 S2 Gastrointestinal: Normal bowel sounds, No tenderness Musculoskeletal: No tenderness Integumentary: No rashes Neurological: Normal speech, Normal tone, Normal affect Lymphatics: No axilla or inguinal lymphadenopathy - Studies Laboratory Data (last 24 hrs) 11/24/22 03:29: Sodium 138, Potassium 4.4, BUN 22 H, Creatinine 0.74, Glucose 116 H, Phosphorus 2.8, Magnesium 2.4 Medications List Reviewed: Yes Assessment And Plan - Current Problems (Diagnosis) (1) Orthostatic hypotension Current Visit: Yes Status: Acute Plan: I HAVE SEEN MANY OLDER MEN HAVING THIS ISSUE WITH LOW TESTOSTERONE. HE HAD PROSTATE CANCER. I WILL DISCUSS WITH HIM. HIS T LEVEL IS 41 THAT IS VERY LOW. (2) S/P knee surgery Current Visit: Yes Status: Acute Plan: WAITING FOR NH. (3) Constipated Current Visit: Yes Status: Acute Plan: DULCOLAX SUP POST SURGICAL NARCOTIC RELATED. (4) Testicular hypofunction Current Visit: Yes Status: Acute Plan: NOT UNSUAL AT THIS AGE ALSO HE HAS HAD PROSTATE CANCER. DR. BURNETT CAN DECIDE IF HE CAN TAKE T SHOTS. IT WILL HELP HIS RECOVERY AND ORTHOSTASIS. Physician Review: Patient Assessed, Agree with Above Assessment and Plan
[2022-11-25] MEDS: HYDROCODONE/APAP 7.5/325 MG TAB PO PRN ×4 (04:42→20:40)
[2022-11-25] MEDS: ENOXAPARIN 30 MG/0.3 ML SQ SCH ×2 (05:52→17:20)
[2022-11-25] MEDS: POLYETHYL GLY 3350 17 GM/DOSE PO SCH (08:45)
[2022-11-25] MEDS: DIGOXIN 0.25 MG TABLET PO SCH (08:46)
[2022-11-25] MEDS: MULTIVIT W/ MINERAL TAB PO SCH (08:46)
[2022-11-25] MEDS: METOPROLOL TAR 50 MG TAB PO SCH ×2 (08:46→20:37)
[2022-11-25] MEDS: ASPIRIN EC 81 MG TAB PO SCH (08:47)
[2022-11-25] MEDS: FLECAINIDE 100 MG TAB PO SCH ×2 (08:47→20:36)
--- NOTE | 2022-11-25 17:49 | P.PN ---
Subjective Date of Service: 11/25/22 Chief Complaint: KNEE SURGERY Subjective: Improving MR. 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 JOHNSTON. SOMEHOW HE NEVER CALLED ME BACK TO TAKE CARE OF HIM AND HAD HOSPITAL GUYS WORKING ON HIM. TODAY AFTER A WEEK THEY FIGURED OUT THAT I AM HIS PRIMARY MD AND SO THEY CALLED ME TO TAKE OVER. HE IS HAVING ORTHOSTASIS AND CONSTIPATION. INSURANCE IS DELAYING TRANSFER OF THIS PATIENT TO REHAB. HE IS STABLE. HE IS WALKING WITH WALKER ABOUT 200 FEET. HE MAY BE ABLE TO GO HOME WITH HELP AT HOME. I ASKED AND HE IS OKAY. Physical Examination - Vital Signs Temperature: 97.4 F Blood Pressure: 122/62 Pulse: 58 Respirations: 17 Pulse Ox (%): 90 - Physical Exam General: Alert, In no apparent distress HEENT: Atraumatic, PERRLA, EOMI Neck: Supple, JVD not distended Respiratory: Clear to auscultation bilaterally, Normal air movement Cardiovascular: Regular rate/rhythm, Normal S1 S2 Gastrointestinal: Normal bowel sounds, No tenderness Musculoskeletal: No tenderness Integumentary: No rashes Neurological: Normal speech, Normal tone, Normal affect Lymphatics: No axilla or inguinal lymphadenopathy - Studies Medications List Reviewed: Yes Assessment And Plan - Current Problems (Diagnosis) (1) Orthostatic hypotension Current Visit: Yes Status: Acute Plan: I HAVE SEEN MANY OLDER MEN HAVING THIS ISSUE WITH LOW TESTOSTERONE. HE HAD PROSTATE CANCER. I WILL DISCUSS WITH HIM. HIS T LEVEL IS 41 THAT IS VERY LOW. (2) S/P knee surgery Current Visit: Yes Status: Acute Plan: WAITING FOR NH. (3) Constipated Current Visit: Yes Status: Acute Plan: DULCOLAX SUP POST SURGICAL NARCOTIC RELATED. (4) Testicular hypofunction Current Visit: Yes Status: Acute Plan: NOT UNSUAL AT THIS AGE ALSO HE HAS HAD PROSTATE CANCER. DR. BURNETT CAN DECIDE IF HE CAN TAKE T SHOTS. IT WILL HELP HIS RECOVERY AND ORTHOSTASIS. Physician Review: Patient Assessed, Agree with Above Assessment and Plan
[2022-11-25] MEDS: DOCUSATE NA 100 MG CAP PO SCH (20:37)
[2022-11-26] MEDS: HYDROCODONE/APAP 7.5/325 MG TAB PO PRN (02:52)
[2022-11-26] MEDS: ENOXAPARIN 30 MG/0.3 ML SQ SCH (06:12)
[2022-11-26] MEDS: LEVOTHYROXINE SOD 0.088 MG TAB PO SCH (06:12)
[2022-11-26] MEDS: POLYETHYL GLY 3350 17 GM/DOSE PO SCH (08:22)
[2022-11-26] MEDS: DIGOXIN 0.25 MG TABLET PO SCH (08:24)
[2022-11-26] MEDS: FLECAINIDE 100 MG TAB PO SCH (08:24)
[2022-11-26] MEDS: ASPIRIN EC 81 MG TAB PO SCH (08:24)
[2022-11-26] MEDS: MULTIVIT W/ MINERAL TAB PO SCH (08:25)
[2022-11-26] MEDS: METOPROLOL TAR 50 MG TAB PO SCH (08:26)
[2022-11-26 08:36] VITALS: O2SAT 95
[2022-11-26 12:10] VITALS: BP 144/61; TEMP 97
--- NOTE | 2022-11-26 12:48 | P.DS ---
Admission Date: 11/20/22 Discharge Date: 11/26/22 Disposition: DC HOME/HOME HEALTH CARE Discharge Condition: FAIR Reason for Admission: KNEE SURGERY - Problems (1) Orthostatic hypotension Current Visit: Yes Status: Acute (2) S/P knee surgery Current Visit: Yes Status: Acute (3) Constipated Current Visit: Yes Status: Acute (4) Testicular hypofunction Current Visit: Yes Status: Acute Hospital Course: MR. OSBORNE HAD SURGERY FOR HIS KNEE BY DR. JOHNSTON. HE CALLED IN WRONG DOCTORS SO I HAD NO IDEA ABOUT HIS STAY IN [facility] UNTIL DR. DEGROOT CALLED AND APOLOGIZED. HE BY THIS TIME IS WALKING WITH PT. HIS INSURANCE COMPANY NEVER REPLIED [facility]. HE IS STABLE TO GO HOME WITH HOME PT. HE WANTS TO GO HOME. HE IS FRUSTRATED WITH HIS INSURANCE COMPANY. Vital Signs/Physical Exam: Temp Pulse Resp BP Pulse Ox 97.0 F 56 16 144/61 H 97 11/26/22 12:00 11/26/22 12:00 11/26/22 12:00 11/26/22 12:00 11/26/22 12:00 Laboratory Data at Discharge: WBC 9.40 K/uL (4.3-10.9) 11/21/22 03:12 Hgb 11.0 g/dL (13.6-17.9) L 11/21/22 03:12 Hct 32.9 % (39.6-49.0) L 11/21/22 03:12 Plt Count 286 K/uL (152-406) 11/21/22 03:12 PT 10.7 SECONDS (9.5-12.5) 11/13/22 09:57 INR 0.97 11/13/22 09:57 APTT 33.5 SECONDS (24.3-36.9) 11/13/22 09:57 Sodium 138 mmol/L (136-145) 11/24/22 03:29 Potassium 4.4 mmol/L (3.5-5.1) 11/24/22 03:29 BUN 22 mg/dL (7-18) H 11/24/22 03:29 Creatinine 0.74 mg/dL (0.70-1.30) 11/24/22 03:29 Glucose 116 mg/dL (74-106) H 11/24/22 03:29 Phosphorus 2.8 mg/dL (2.5-4.9) 11/24/22 03:29 Magnesium 2.4 mg/dL (1.6-2.4) 11/24/22 03:29 Total Bilirubin 0.4 mg/dL (0.2-1.0) 11/13/22 09:57 AST 19 U/L (15-37) 11/13/22 09:57 ALT 25 U/L (16-61) 11/13/22 09:57 Alkaline Phosphatase 84 U/L (45-117) 11/13/22 09:57 Home Medications: Aspirin [Aspirin EC 81 MG] 81 mg PO DAILY 09/13/15 Flecainide [Tambocor*] 200 mg PO BID 09/13/15 Multivit-Min/FA/Lycopen/Lutein [Centrum Silver Tablet] 1 each PO DAILY 09/13/15 Doxazosin Mesylate 8 mg PO BEDTIME 11/19/22 Digoxin 250 mcg PO DAILY 11/26/22 Levothyroxine Sodium [Levothyroxine] 100 mcg PO DAILY 11/26/22 Losartan Potassium 50 mg PO DAILY 11/26/22 Metoprolol Succinate 25 mg PO DAILY 11/26/22 Followup: Randell Arshad MD [Primary Care Provider] -
== END 2022-11-26 14:49 | disposition home health service (06) | DRG 470 ==
LOC: OR 05:45 → 4TH 10:52 → INTOOBSV 10:52 → OBSVTOIN 11-20 07:39
PROVIDERS: ADMIT Orthopaedic Surgery; ATTEND Orthopaedic Surgery
PROC: 0SRC0J9 Replacement of Right Knee Joint with Synthetic Substitute, Cemented, Open Approach (ICD-10-PCS; principal; 2022-11-17 07:00)
DX: M17.11 Unilateral primary osteoarthritis, right knee (principal); I48.20 Chronic atrial fibrillation, unspecified; D62 Acute posthemorrhagic anemia; I95.1 Orthostatic hypotension; E03.9 Hypothyroidism, unspecified; I12.9 Hypertensive chronic kidney disease with stage 1 through stage 4 chronic kidney disease, or unspecified chronic kidney disease; N18.2 Chronic kidney disease, stage 2 (mild); D63.1 Anemia in chronic kidney disease; E29.1 Testicular hypofunction; K59.00 Constipation, unspecified; M19.90 Unspecified osteoarthritis, unspecified site; Z85.46 Personal history of malignant neoplasm of prostate; Z79.82 Long term (current) use of aspirin; Z79.890 Hormone replacement therapy; Z79.899 Other long term (current) drug therapy; Z20.822 Contact with and (suspected) exposure to COVID-19
CPT/HCPCS: 36415; 71046; 80048; 80053; 81003; 83735; 83880; 84100; 84403; 85014; 85018; 85025; 85610; 85730; 86850; 86900; 86901; 87811; 88304; 88305; 88311; 93005; 94010; 97110; 97112; 97116; 97139; 97161; 97530; A4216; G0378; G0379; J0171; J0690; J1100; J1170; J1650; J2001; J2405; J2704; J3010; J7030; J7120

== ENCOUNTER 2024-01-22 19:38 | Observation (INO) | payer OTHER ==
[2024-01-22 19:57] LABS: Hemoglobin 9.6 g/dL (13.6-17.9); MCHC 34.2 g/dL (32.0-36.0); RBC Red Blood Cell Count 3.02 M/uL (4.33-5.43)
[2024-01-22 20:00] LABS: Absolute Lymphocytes (CBC) 1.3 K/uL (0.7-4.9); Absolute Monocytes 0.7 K/uL (0.1-1.3); Basophils % 0.2 % (0-1.3); Eosinophils % 0.2 % (0-4.4); Lymphocytes % 12.1 % (15.3-44.8); MCH 31.7 pg (27.0-35.0); MCV 92.9 fL (80-100); MPV 7.8 fL (7.6-11.3); Neutrophils % 81.5 % (41.7-73.7); Platelets 263 thou/uL (152-406)
[2024-01-22 20:04] LABS: PT Prothrombin Time 12.6 SECONDS (9.5-12.5); Protime INR 1.15
--- NOTE | 2024-01-22 20:06 | RAD REPORT ---
EXAM DESCRIPTION: RAD - Chest Single View - 01/22/2024 8:00 pm CLINICAL HISTORY: CHEST PAIN Chest pain. COMPARISON: Chest Pa And Lat (2 Views) dated 11/13/2022; Chest Abd Pelvis Wo Con dated 01/09/2024 FINDINGS: Portable technique limits examination quality. Small left pleural effusion. Mild atelectasis left lung base. The lungs are otherwise clear. The hear t is normal in size. No new bone findings.
[2024-01-22 21:44] LABS: ALT/SGPT 24 U/L (16-61); AST/SGOT 15 U/L (15-37); Albumin 2.6 g/dL (3.4-5.0); Alkaline Phosphatase 78 U/L (45-117); Anion Gap 14.8 mEq/L (5.0-15.0); BUN Blood Urea Nitrogen 22 mg/dL (7-18); Bicarbonate 23 mEq/L (21-32); Bilirubin Direct 0.3 mg/dL (0-0.2); Bilirubin Indirect, Calculated 0.3 mg/dL (0.2-0.8); Bilirubin Total 0.6 mg/dL (0.2-1.0); Globulin 2.6 g/dL (2.3-3.5); Glomerular Filtration Rate 72 ml/min (=/>90); Glucose Level 135 mg/dL (74-106); Magnesium 1.9 mg/dL (1.6-2.4); NT PRO-BNP 1115 pg/mL (<450); Potassium 3.8 mEq/L (3.5-5.1); Protein, Total 5.2 g/dL (6.4-8.2); Sodium Level 137 mEq/L (136-145); Troponin High Sensitivity 8.3 pg/mL (<58.9)
[2024-01-22 22:14] LABS: Digoxin Level < 0.06 ng/mL (0.80-2.00)
--- NOTE | 2024-01-22 22:37 | EDPHYS ---
Physician Documentation [facility] Name: Alec Akers Age: 88 yrs Sex: Male : 1935 Arrival Date: 01/22/2024 Time: 19:38 Bed 20 Private MD: ED Physician Kimo Mojica HPI: 01/21 19:49 This 88 yrs old Male presents to ER via EMS with complaints of Chest Pain. sp4 20:32 PVCs 88-year-old male with history of atrial fibrillation, history of hypertension sp4 hypothyroidism. Patient presents with acute onset left-sided sharp stabbing chest pain starting at the wrist today just prior to arrival. Patient's medications include aspirin 81 mg daily, flecainide 200 mg p.o. twice daily, multivitamins daily, doxazosin mesylate 8 mg p.o. bedtime, digoxin 250 mcg p.o. daily, levothyroxine 100 mcg p.o. daily, losartan potassium 50 mg p.o. daily, metoprolol succinate 25 mg p.o. daily additional history includes hypogonadism, history of prostate cancer osteoarthritis, history of right total knee replacement, . Historical: - Allergies: 19:45 No Known Allergies; cm10 - Home Meds: 19:49 aspirin 81 mg Oral capsule [Active]; losartan 50 mg oral tablet 1 tab once [Active]; mb9 metoprolol tartrate 25 mg Oral tablet 1 tab once [Active]; levothyroxine 100 mcg capsule 1 cap once [Active]; digoxin 125 mcg (0.125 mg) oral tablet once [Active]; flecainide 100 mg oral tablet [Active]; - PMHx: 19:45 Atrial fibrillation; Hypertensive disorder; cm10 - PSHx: 19:45 hernia; kidney stone; knee; Tonsillectomy; cm10 - Immunization history:: Adult Immunizations up to date. - Social history:: Smoking status: Patient denies any tobacco usage or history of. - Family history:: not pertinent. ROS: 20:32 Constitutional: Negative for fever, chills, and weight loss, positive for chest pain sp4 20:32 All other systems are negative, Exam: 20:32 Constitutional: This is a well developed, well nourished patient who is awake, alert, sp4 and in no acute distress. Head/Face: Normocephalic, atraumatic. Eyes: Pupils equal round and reactive to light, extra-ocular motions intact. Lids and lashes normal. Conjunctiva and sclera are not injected. Cornea within normal limits. Periorbital areas with no swelling, redness, or edema. ENT: Nares patent. No nasal discharge, no septal abnormalities noted. Tympanic membranes are normal and external auditory canals are clear. Oropharynx with no redness, swelling, or masses, exudates, or evidence of obstruction, uvula midline. Mucous membranes moist. Neck: Trachea midline, no thyromegaly or masses palpated, and no cervical lymphadenopathy. Supple, full range of motion without nuchal rigidity, or vertebral point tenderness. Chest/axilla: Normal chest wall appearance and motion. Nontender with no deformity. No lesions are appreciated. Cardiovascular: Regular rate and rhythm with a normal S1 and S2. No gallops, murmurs, or rubs. Normal PMI, no JVD. No pulse deficits. Respiratory: Lungs have equal breath sounds bilaterally, clear to auscultation and percussion. No rales, rhonchi or wheezes noted. No increased work of breathing, no retractions or nasal flaring. Abdomen/GI: Soft, with normal bowel sounds. No distension or tympany. No guarding or rebound. No evidence of tenderness throughout. Back: No spinal tenderness. No costovertebral tenderness. Skin: Warm, dry with normal turgor. Normal color with no rashes, no lesions, and no evidence of cellulitis. MS/ Extremity: Pulses equal, no cyanosis. Neurovascular intact. Full, normal range of motion. Neuro: Awake and alert, GCS 15, oriented to person, place, time, and situation. Cranial nerves II-XII grossly intact. Motor strength 5/5 in all extremities. Sensory grossly intact. Psych: Awake, alert, with orientation to person, place and time. Behavior, mood, and affect are within normal limits 20:36 ECG was reviewed by the Attending Physician. Is EKG at 1842, atrial fibrillation at the sp4 rate of 68, left axis deviation, right bundle branch block Vital Signs: 19:41 BP 123 / 66; Pulse 66; Resp 16; Temp 98.9(O); Pulse Ox 98% on R/A; Weight 97.52 kg (R); cm10 Height 6 ft. 1 in. (R); Pain 5/10; 20:58 BP 119 / 59; Pulse 60; Resp 16; Pulse Ox 97% on R/A; jb4 23:15 BP 129 / 77; Pulse 62; Resp 16; Pulse Ox 98% on R/A; jb4 19:41 Body Mass Index 28.37 (97.52 kg, 185.42 cm) cm10 19:41 Pain Scale: Adult cm10 MDM: 19:50 Patient medically screened. sp4 22:34 ED course: EXAM DESCRIPTION: RAD - Chest Single View - 01/22/2024 8:00 pm CLINICAL sp4 HISTORY: CHEST PAIN Chest pain. COMPARISON: Chest Pa And Lat (2 Views) dated 11/13/2022; Chest Abd Pelvis Wo Con dated 01/09/2024 FINDINGS: Portable technique limits examination quality. Small left pleural effusion. Mild atelectasis left lung base. The lungs are otherwise clear. The heart is normal in size. No new bone findings. . 22:36 Differential diagnosis: acute myocardial infarction, acute pericarditis, anxiety, sp4 coronary artery disease costochondritis, esophagitis, gastritis. HEART Score: History: Moderately Suspicious (1), ECG: Non specific repolarization disturbance / LBTB / PM (1), Age: > or = 65 years (2), Risk Factors: > or = 3 Risk factors for atherosclerotic disease (2), Troponin: < or = 1 x Normal Limit (0), Total Score = 6. The patient was not given aspirin in the Emergency Department. Patient reports taking aspirin within the past 24 hours. Data reviewed: vital signs, nurses notes, EMS record, old medical records, lab test result(s), EKG, radiologic studies, plain films. 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 01/21 19:50 Order name: Basic Metabolic Panel; Complete Time: 22:27 sp4 01/21 19:50 Order name: CBC with Diff; Complete Time: 20:39 sp4 01/21 19:50 Order name: LFT's; Complete Time: 22:27 sp4 01/21 19:50 Order name: Magnesium; Complete Time: 22:27 sp4 01/21 19:50 Order name: NT PRO-BNP; Complete Time: 22:27 sp4 01/21 19:50 Order name: PT-INR; Complete Time: 20:39 sp4 01/21 19:50 Order name: Troponin HS; Complete Time: 22:27 sp4 01/21 19:50 Order name: Digoxin; Complete Time: 22:27 sp4 01/21 20:26 Order name: T4 Free; Complete Time: 22:27 EDOK 01/21 20:26 Order name: Thyroid Stimulating Hormone; Complete Time: 22:27 EDOK 01/22 01:23 Order name: Troponin High Sensitivity [facility] 01/22 08:59 Order name: Troponin High Sensitivity [facility] 01/22 11:48 Order name: Urinalysis w/ reflexes [facility] 01/21 19:50 Order name: XRAY Chest (1 view); Complete Time: 20:39 sp4 01/21 19:50 Order name: EKG; Complete Time: 19:50 sp4 01/21 22:59 Order name: CONS Physician Consult [facility] 01/21 19:50 Order name: Cardiac monitoring; Complete Time: 19:50 sp4 01/21 19:50 Order name: EKG - Nurse/Tech; Complete Time: 19:50 sp4 01/21 19:50 Order name: IV Saline Lock; Complete Time: 19:50 sp4 01/21 19:50 Order name: Labs collected and sent; Complete Time: 19:50 sp4 01/21 19:50 Order name: O2 Per Protocol; Complete Time: 19:50 sp4 01/21 19:50 Order name: O2 Sat Monitoring; Complete Time: 19:50 sp4 EC:36 Rate is 68 beats/min. Rhythm is irregular, A fib. Left axis deviation noted. NM sp4 interval is normal. QRS interval is prolonged. QT interval is normal. No Q waves. T waves are Normal. No ST changes noted. Clinical impression: No evidence of ischemia. Interpreted by me. Reviewed by me. Administered Medications: 22:51 Drug: [place] PO 10 mg-325 mg 1 tabs PO once Route: PO; jb4 01/22 00:36 Follow up: Response: No adverse reaction cm10 Disposition Summary: 01/22/24 22:36 Hospitalization Ordered Notes: Hospitalization Status: Observation sp4 Provider: Randell Arshad sp4 Condition: Stable sp4 Problem: new sp4 Symptoms: have improved sp4 Bed/Room Type: Standard sp4 Location: Telemetry/MedSurg (Inpatient)(01/23/24 15:19) ds4 Room Assignment: 425(01/23/24 15:19) ds4 Diagnosis - Chronic atrial fibrillation sp4 - Angina pectoris sp4 Forms: - Medication Reconciliation Form sp4 - SBAR form sp4 - Leadership Thank You Letter sp4 Signatures: Dispatcher [employer] EDMS RossMartínezDriss ds4 Hannah Calle, RN RN cg Braydon Romero RN RN jb4 Bailey Garcia RN RN mb9 Kimo Mojica MD MD sp4 Vibha Rodrigues RN RN cm10 Corrections: (The following items were deleted from the chart) 01/21 20:25 20:12 THYROID STIMULAT HORMONE+C.LAB.BRZ ordered. EDMS EDMS 20:25 20:12 T4 FREE+C.LAB.BRZ ordered. EDMS EDMS 23:39 22:36 Telemetry/MedSurg (observation) sp4 cg 23:39 22:36 sp4 cg 01/22 15:19 01/21 23:39 [facility] ER HOLD cg ds4 01/22 15:19 01/21 23:39 ERHOLD- cg ds4
--- NOTE | 2024-01-22 22:37 | ER ---
Nurse's Notes [facility] Name: Alec Akers Age: 88 yrs Sex: Male : 1935 Arrival Date: 01/22/2024 Time: 19:38 Bed 20 Private MD: Diagnosis: Chronic atrial fibrillation;Angina pectoris Presentation: 01/21 19:41 Chief complaint: EMS states: Called to patient's home due to patient having chest pain. cm10 Per patient, chest pain began yesterday. Pain is to the left side of chest and is described as a sharp stabbing pain. Pt states that he fell 2 weeks ago and fractured 2 ribs on left side. Pt currently rates his pain a 5/10 and states that the pain does not radiate. EMS reports that patient was hypotensive upon arrival. Coronavirus screen: Vaccine status: Patient reports receiving the 2nd dose of the covid vaccine. Client denies travel out of the [place] in the last 14 days. At this time, the client does not indicate any symptoms associated with coronavirus-19. Ebola Screen: Patient denies travel to an Ebola-affected area in the 21 days before illness onset. No symptoms or risks identified at this time. Initial Sepsis Screen: Does the patient meet any 2 criteria? No. Patient's initial sepsis screen is negative. Does the patient have a suspected source of infection? No. Patient's initial sepsis screen is negative. Risk Assessment: Do you want to hurt yourself or someone else? Patient reports no desire to harm self or others. Onset of symptoms was January 21, 2024. Care prior to arrival: Medication(s) given: ASA, 81 mg, x 4, Normal saline infusion, 500 mL, IV initiated. 20 GA, in the right wrist. 19:41 Method Of Arrival: EMS: [facility] cm10 19:41 Acuity: JESSIE 2 cm10 Triage Assessment: 19:45 General: Appears in no apparent distress. comfortable, Behavior is calm, cooperative. cm10 Pain: Complains of pain in chest Pain does not radiate. Pain currently is 5 out of 10 on a pain scale. Quality of pain is described as sharp, shooting, stabbing, Pain began 1 day ago. Is continuous. Neuro: No deficits noted. Level of Consciousness is awake, alert, obeys commands, Oriented to person, place, time, situation. Cardiovascular: No deficits noted. Reports chest pain, Patient's skin is warm and dry. Rhythm is atrial fibrillation Chest pain is described as mild, quality is sharp, stabbing, is located in left began 1 day ago episodes are continuous. Respiratory: No deficits noted. Airway is patent Respiratory effort is even, unlabored, Respiratory pattern is regular, agonal. GI: No deficits noted. No signs and/or symptoms were reported involving the gastrointestinal system. : No deficits noted. No signs and/or symptoms were reported regarding the genitourinary system. Derm: No deficits noted. No signs and/or symptoms reported regarding the dermatologic system. Skin is intact, Skin is pink, warm \T\ dry. Musculoskeletal: No deficits noted. Range of motion: intact in all extremities. Historical: - Allergies: 19:45 No Known Allergies; cm10 - Home Meds: 19:49 aspirin 81 mg Oral capsule [Active]; losartan 50 mg oral tablet 1 tab once [Active]; mb9 metoprolol tartrate 25 mg Oral tablet 1 tab once [Active]; levothyroxine 100 mcg capsule 1 cap once [Active]; digoxin 125 mcg (0.125 mg) oral tablet once [Active]; flecainide 100 mg oral tablet [Active]; - PMHx: 19:45 Atrial fibrillation; Hypertensive disorder; cm10 - PSHx: 19:45 hernia; kidney stone; knee; Tonsillectomy; cm10 - Immunization history:: Adult Immunizations up to date. - Social history:: Smoking status: Patient denies any tobacco usage or history of. - Family history:: not pertinent. Screenin:46 [facility] ED Fall Risk Assessment (Adult) History of falling in the last 3 months, mb9 including since admission Yes- single mechanical fall (1 pt) Confusion or Disorientation No (0 pts) Intoxicated or Sedated No (0 pts) Impaired Gait No (0 pts) Mobility Assist Device Used No (0 pt) Altered Elimination No (0 pt) Score/Fall Risk Level 3 or more points = High Risk Oriented to surroundings, Maintained a safe environment, Educated pt \T\ family on fall prevention, incl call for assistance when getting out of bed. Abuse screen: Denies threats or abuse. Nutritional screening: No deficits noted. Tuberculosis screening: No symptoms or risk factors identified. Assessment: 20:55 Reassessment: Patient appears in no apparent distress at this time. Patient and/or jb4 family updated on plan of care and expected duration. Pain level reassessed. Patient is alert, oriented x 3, equal unlabored respirations, skin warm/dry/pink. 21:45 Reassessment: Patient appears in no apparent distress at this time. Patient and/or cm10 family updated on plan of care and expected duration. Pain level reassessed. Patient is alert, oriented x 3, equal unlabored respirations, skin warm/dry/pink. 22:53 Reassessment: Patient appears in no apparent distress at this time. Patient and/or jb4 family updated on plan of care and expected duration. Pain level reassessed. Patient is alert, oriented x 3, equal unlabored respirations, skin warm/dry/pink. Vital Signs: 19:41 BP 123 / 66; Pulse 66; Resp 16; Temp 98.9(O); Pulse Ox 98% on R/A; Weight 97.52 kg (R); cm10 Height 6 ft. 1 in. (R); Pain 5/10; 20:58 BP 119 / 59; Pulse 60; Resp 16; Pulse Ox 97% on R/A; jb4 23:15 BP 129 / 77; Pulse 62; Resp 16; Pulse Ox 98% on R/A; jb4 19:41 Body Mass Index 28.37 (97.52 kg, 185.42 cm) cm10 19:41 Pain Scale: Adult cm10 ED Course: 19:41 Patient arrived in ED. cm10 19:44 Maintain EMS IV. Dressing intact. Good blood return noted. Site clean \T\ dry. Gauge \T\ joao 4 site: 20g RFA. Flushed right forearm with 5 ml normal saline. 19:45 Triage completed. cm10 19:45 EKG done, by ED staff, reviewed by Kimo Mojica MD. Patient maintains SpO2 mb9 saturation greater than 95% on room air. 19:45 Placed in gown. Bed in low position. Call light in reach. Side rails up X 1. Client mb9 placed on continuous cardiac and pulse oximetry monitoring. NIBP monitoring applied. playground monitor on. 19:45 Arm band placed on. mb9 19:46 No provider procedures requiring assistance completed. mb9 19:47 EKG completed in triage. Results shown to MD. cm10 19:49 Kimo Mojica MD is Attending Physician. sp4 19:50 Vibha Rodrigues, RN is Primary Nurse. cm10 19:51 Provided Education on: press call light if needing anything. Door closed. Noise mb9 minimized. Warm blanket given. 19:52 Troponin HS Sent. jb4 19:52 PT-INR Sent. jb4 19:52 NT PRO-BNP Sent. jb4 19:52 Magnesium Sent. jb4 19:52 LFT's Sent. jb4 19:52 CBC with Diff Sent. jb4 19:52 Basic Metabolic Panel Sent. jb4 19:52 Digoxin Sent. jb4 20:03 XRAY Chest (1 view) In Process Unspecified. EDMS 20:26 Warm blanket given. cm10 22:26 Assisted with urinal. kmf 22:35 Randell Arshad MD is Hospitalizing Provider. sp4 01/22 00:36 Patient admitted, IV remains in place. cm10 00:52 Repeat lab(s) drawn. by ri, sent to lab. kmf Administered Medications: 01/21 22:51 Drug: [place] PO 10 mg-325 mg 1 tabs PO once Route: PO; jb4 01/22 00:36 Follow up: Response: No adverse reaction cm10 Medication: 01/21 19:46 VIS not applicable for this client. mb9 Outcome: 22:36 Decision to Hospitalize by Provider. sp4 01/22 00:36 Admitted to ER Hold. Please see [facility] for further documentation. cm10 Condition: good Instructed on the need for admit, 17:31 Patient left the ED. kc6 Signatures: Dispatcher [employer] EDMS Braydon Romero RN RN jb4 Dorina Wagner RN RN kc6 Bailey Garcia RN JACKELIN [id number] Kimo Mojica MD MD sp4 Vibha Rodrigues, RN RN cm10 Magaly Mendez [facility] Corrections: (The following items were deleted from the chart) 01/21 19:47 19:46 [facility] ED Fall Risk Assessment (Adult) History of falling in the last 3 months, mb9 including since admission No falls in past 3 months (0 pts) Confusion or Disorientation No (0 pts) Intoxicated or Sedated No (0 pts) Impaired Gait No (0 pts) Mobility Assist Device Used No (0 pt) Altered Elimination No (0 pt) Score/Fall Risk Level 0 - 2 = Low Risk Oriented to surroundings, Maintained a safe environment, Educated pt \T\ family on fall prevention, incl call for assistance when getting out of bed, mb9
[2024-01-22] MEDS ORDERED: HYDROCODONE/APAP 10/325 TAB ONE (22:47)
[2024-01-23] MEDS ORDERED: ALPRAZOLAM 0.25 MG TABLET PO PRN (00:41)
[2024-01-23] MEDS ORDERED: ALBUTEROL 2.5 MG/3 ML NEB SOL NEB PRN (00:41)
[2024-01-23] MEDS ORDERED: ONDANSETRON 4 MG/2 ML VIAL IV PRN (00:41)
[2024-01-23] MEDS ORDERED: ACETAMINOPHEN 325 MG TABLET PO PRN (00:41)
[2024-01-23 01:09] VITALS: BMI 28.3
[2024-01-23] MEDS ORDERED: DIGOXIN 0.25 MG TABLET ONE (08:43)
[2024-01-23] MEDS ORDERED: ASPIRIN EC 81 MG TAB PO ONE (08:43)
[2024-01-23] MEDS ORDERED: LOSARTAN POTASSIUM 50 MG TABLET ONE (08:43)
[2024-01-23] MEDS: ASPIRIN EC 81 MG TAB PO SCH (08:47)
[2024-01-23] MEDS: LOSARTAN POTASSIUM 50 MG TABLET PO SCH (08:47)
[2024-01-23] MEDS: DIGOXIN 0.25 MG TABLET PO SCH (08:47)
[2024-01-23] MEDS: FLECAINIDE 100 MG TAB PO SCH (09:00)
[2024-01-23] MEDS: DOXAZOSIN 4 MG TAB PO SCH (09:00)
[2024-01-23] MEDS: PNEUMOCOCCAL VACCINE 0.5 ML IMVAC ONE (11:00)
[2024-01-23] MEDS: INFLUENZA VACCINE (for 6+ mo) 0.5 ML DOSE IMVAC ONE (11:00)
[2024-01-23 11:48] LABS: Specific Gravity 1.013 (1.005-1.030); Urine Bilirubin NEGATIVE (Negative); Urine Blood Negative (Negative); Urine Clarity Clear (Clear); Urine Color Light-Yellow (Yellow); Urine Glucose NEGATIVE (Negative); Urine Ketones NEGATIVE (Negative); Urine Microscopic Reflex YN NO UMIC; Urine Nitrite NEGATIVE (Negative); Urine Protein NEGATIVE (Negative); Urine Urobilinogen Normal (Normal); Urine pH 5.5 (5.0-7.0)
--- NOTE | 2024-01-23 16:25 | CON ---
Date of Consultation: 01/23/2024 Reason For Consultation: Chest pain. History Of Present Illness: An 88-year-old male, history of atrial fibrillation, hypertension, hypot hyroidism, presented with chest pain on the left side, no radiation, not related to exertion. Has be en going on for a few days and the patient is a poor historian and could not get any further details about his chest pain qualification. Past Medical History: As outlined above in the HPI. Medications: Refer to reconciliation sheet for detailed list. Allergies: NO KNOWN DRUG ALLERGIES. Family History: No premature coronary artery disease or cancer. Social History: Does not smoke or drink. Does not use any drugs. Review of Systems: All systems reviewed are negative. Physical Examination: Vital Signs: Reviewed. Head and Neck: Pupils are equal, reactive to light. Intact eye movements. No JVD. No cervical lym phadenopathy. Neck: Supple. Thyroid is not enlarged. Lungs: Clear to auscultation bilaterally. No rhonchi, rales, or crackles. No accessory muscle use. Heart: Regular rate and rhythm. No extra sounds. Abdomen: Soft, nontender. Bowel sounds positive. No organomegaly. No masses or hernia. No rigidi ty or rebound. Extremities: No edema, clubbing, cyanosis. Intact pulses. SKIN: No rash. NEUROLOGIC: Alert, awake, oriented x3. No acute focal deficits appreciated. Investigations: BUN 22, creatinine 1.01. NT-proBNP is 1115. Troponins x3 are negative and white bl ood cell count is 11,000. Assessment And Recommendations: 1.Chest pain. Cardiac enzymes are negative. Pain is atypical. Recommend outpatient stress test. 2.Elevated NT-proBNP. Obtain an echo to further evaluate his heart function. 3.Dyslipidemia, on statin. Thank you for the consult. /ZEUS Voice ID: [id number] Report ID: [id number]
[2024-01-23 17:38] VITALS: TEMP 98.9
[2024-01-23 18:07] VITALS: BP 129/77; O2SAT 98
[2024-01-23] MEDS ORDERED: ATORVASTATIN 40 MG TAB PO SCH (21:00)
[2024-01-23] MEDS ORDERED: DULOXETINE 30 MG CAP PO SCH (21:00)
[2024-01-24] MEDS ORDERED: METOPROLOL XL 25 MG TAB PO SCH (06:00)
[2024-01-24] MEDS ORDERED: LEVOTHYROXINE SOD 0.1 MG TAB PO SCH (06:30)
--- NOTE | 2024-01-24 08:24 | P.SSS ---
Patient History Date of Service: 01/24/24 Reason for admission: SHOULDER PAIN,NECK PAIN, UPPER CHEST PAIN History of Present Illness: DEBBY IS AN 88Y OLD GM WITH A FIB, DJD, HTN WHO HAD NORMAL STRESS TEST A YEAR AGO, COMES WITH SUDDEN SHOULDER PAIN, NECK PAIN AND UPPER CHEST PAIN FOR TWO DAYS. T HIS PAIN IS WORSE WHEN HE MOVES HIS UPPER BODY. THIS PAIN HAS NO CARDIAC CHARACTER. HE EVEN KNOWS IT AND HE WANTS TO GO HOME. HE IS STABLE TO GO HOME WITH NEG CE. HE GOES TO DR. DUNCAN. Allergies No Known Allergies Allergy (Verified 11/13/22 09:14) Home medications list reviewed: Yes Home Medications: Aspirin [Aspirin EC 81 MG] 81 mg PO DAILY 09/13/15 Flecainide [Tambocor*] 200 mg PO BID 09/13/15 Multivit-Min/FA/Lycopen/Lutein [Centrum Silver Tablet] 1 each PO DAILY 09/13/15 Doxazosin Mesylate 8 mg PO BEDTIME 11/19/22 Digoxin 250 mcg PO DAILY 11/26/22 Levothyroxine Sodium 100 mcg PO DAILY 11/26/22 Losartan Potassium 50 mg PO DAILY 11/26/22 Metoprolol Succinate 25 mg PO DAILY 11/26/22 Atorvastatin Calcium [Lipitor] 40 mg PO DAILY 01/23/24 hydroCHLOROthiazide [Hydrochlorothiazide*] 12.5 mg PO DAILY 01/23/24 - Past Medical/Surgical History Has patient received pneumonia vaccine in the past: Yes Diabetic: No -: HTN -: OA -: A-Fib -: Prostate CA -: Thyroid Disease -: irregular heart beat -: high blood pressure -: prostrate cancer radiation 2010 -: hernia 20 yrs old -: kidney stone 40 yrs ago -: Spinal Sx - Family History Mother -: Heart disease - Social History Smoking Status: Never smoker Alcohol use: No CD- Drugs: No Caffeine use: Yes Place of Residence: Home Review of Systems 10-point ROS is otherwise unremarkable Physical Examination - Vital Signs Temperature: 98.9 F Blood Pressure: 129/77 Pulse: 62 Respirations: 16 Pulse Ox (%): 97 - Physical Exam General: Alert, In no apparent distress HEENT: Atraumatic, PERRLA, Mucous membr. moist/pink, EOMI, Sclerae nonicteric Neck: Supple, 2+ carotid pulse no bruit, No LAD, Without JVD or thyroid abnormality Respiratory: Clear to auscultation bilaterally, Normal air movement Cardiovascular: Regular rate/rhythm, Normal S1 S2 Gastrointestinal: Normal bowel sounds, No tenderness Musculoskeletal: No tenderness Integumentary: No rashes Neurological: Normal gait, Normal speech, Normal strength at 5/5 x4 extr, Normal tone, Normal affect Lymphatics: No axilla or inguinal lymphadenopathy - Diagnosis (Problem(s)) (1) Pleuritic chest pain Status: Acute Plan: ATYPICAL NON CARDIAC CE NEG FU WITH DR. DUNCAN HE AT 88 DOES NOT WANT ANYTHING DONE AGGRESSIVELY. HE WANTS KNEE REPLACED HE IS IN SEVERE PAIN. HE IS MEDICALLY CLEARED WITH MOD RISK. - Disposition Disposition: ROUTINE DISCHARGE Condition: FAIR
== END 2024-01-23 17:30 | disposition home or self-care (01) ==
LOC: ER 19:38 → ERHOLD 22:55 → 4TH 01-23 15:27 → ERHOLD 01-23 17:12
PROVIDERS: ADMIT Internal Medicine; ATTEND Internal Medicine
DX: R07.81 Pleurodynia (principal); M25.519 Pain in unspecified shoulder; M54.2 Cervicalgia; I48.20 Chronic atrial fibrillation, unspecified; E03.9 Hypothyroidism, unspecified; I10 Essential (primary) hypertension; E78.5 Hyperlipidemia, unspecified; R79.89 Other specified abnormal findings of blood chemistry; Z85.46 Personal history of malignant neoplasm of prostate
CPT/HCPCS: 36415; 71045; 80048; 80076; 80162; 81003; 83735; 83880; 84439; 84443; 84484; 85025; 85610; 93005; G0378